=== PATIENT | female | born 1965 | race Asian ===

== ENCOUNTER 2023-10-18 00:35 | Emergency (ER) | payer OTHER ==
[~2023-10-18] VITALS: Ht 157.5 cm; Wt 59.1 kg
[2023-10-18] MEDS ORDERED: diphenhydrAMINE 50 mg/ml inj IM ONE (03:30)
[2023-10-18] MEDS ORDERED: PRED20TA PO (03:46)
[2023-10-18] MEDS ORDERED: SULF1TAB49 PO (03:46)
[2023-10-18] MEDS ORDERED: CEPH-585 PO (03:46)
[2023-10-18] MEDS ORDERED: DIPH25CA83 PO (03:46)
[2023-10-18] MEDS: predniSONE 20 mg tablet PO ONE (04:20)
[2023-10-18] MEDS: cephalexin 500mg capsule PO ONE (04:20)
[2023-10-18] MEDS: diphenhydrAMINE 25mg capsule PO ONE (04:20)
[2023-10-18] MEDS: sulfamethoxazole/trimethoprim DS (800/160mg) tablet PO ONE (04:21)
[2023-10-18 04:36] VITALS: BP 136/78; PULSE 78; RESP 16; TEMP 98.5; O2SAT 98
== END 2023-10-18 04:37 | disposition home or self-care (01) ==
LOC: ER 00:36
DX: R21 Rash and other nonspecific skin eruption (principal); L03.90 Cellulitis, unspecified; Z79.2 Long term (current) use of antibiotics; Z79.899 Other long term (current) drug therapy
CPT/HCPCS: 99284; J7512; Q0163